=== PATIENT | female | born 1975 | race Caucasian/White ===

== ENCOUNTER 2019-05-15 08:30 | Outpatient (RCR) | payer OTHER, SELFPAY ==
--- NOTE | 2019-05-15 11:04 | HP.PTDCSUM ---
HP - PT D/C Summary It has been my pleasure to treat MAGALIE RIOS under orders from Denzel Gotti MD, for the diagnosis of RIGHT HIP PAIN for a total of 7 visit(s). Discharge Date: Please see the following information for a summary of their discharge status. - Subjective Subjective: PATIENT REPORTS HER MOBILITY HAS IMPROVED AND SHE IS NOT IN MUCH PAIN WALKING NOW. 80% BETTER. DOING HOME EX'S TOO. PATIENT RELATES HER IMPROVEMENTS TO THE POOL EX'S BUT STATES IT IS A HASSLE TO COME AND DO IT. PATIENT WANTS TO TRY JUST CONTINUING HER EX'S AT HOME ON HER OWN AT THIS POINT. PLANNING TO FOLLOW UP WITH DR. GOTTI IN AUG. PATIENT REPORTS SHE IS BETTER ENOUGH NOW THAT SHE KNOWS SHE CAN WALK DOWNTOWN. PATIENT REPORTS NO MORE THAN 3/10 RIGHT HIP PAIN NOW. STILL GETS PAIN TURNING OVER IN BED IN RIGHT GROIN REGION. - Pain R hip Pain Intensity (Out of 10): 1 - Overall Improvement % Improvement: 80 - Objective Objective/Function: PATIENT HAS MADE GREAT PROGRESS WITH PT AND ALTHOUGH SHE MAY BENEFIT FROM FURTHER THERAPY AT THIS TIME SHE WOULD LIKE TO TRY TO JUST CONTINUE ON HER OWN AT THIS TIME. SHE CONTINUES TO. WALK ON A BENT RIGHT KNEE. TRYING TO STAND WITH RIGHT LE STRAIGHT ALSO CONTINUES TO INCREASE RIGHT HIP PAIN. INCREASED RIGHT HIP PAIN WHEN TRYING TO WALK FASTER. Motor deficit: LLE 5/5 WITH MMT'ING. RIGHT LE STRENGTH HAS IMPROVED BUT STILL WITH SIGNIFICANT RIGHT HIP ROTATOR WEAKNESS ER > IR: HIP FLEX 4/5, HIP ABD 4/5, HIP ADD 5/5, HIP, EXT 4/5, IR 4-/5, ER 3+/5. RIGHT KNEE EXT 5/5, KNEE FLEX 5/5, ANKLE 5/5. ROM deficit: PATIENT STILL WITH DECREASED RIGHT HIP ER BY APPROX 50% COMPARED TO THE LEFT AND PAINFUL WITH TESTING. Reflexes: NT. Dural Signs: NEGATIVE MEY LE'S. Lumbar mvmt loss: flex - MIN. ext - BARRY. R SG - MOD. L SG - MOD. LUMBAR EXT TESTING PRODUCES INCREASED RIGHT HIP PAIN. Core strength: POOR. OTHER: ADDED MEY LE DURAL STRETCHING TO HEP TODAY AND ISSUED WRITTEN POOL PROGRAM. RECOMMENDED PHYSICIAN FOLLOW UP. - Goals Goal 1:: DECREASE C/O RIGHT HIP PAIN Goal Progress: Goal Met Goal 2:: IMPROVE STANDING, WALKING, STAIR CLIMBING, ROLLING, SLEEP, RECREATIONAL AND WORK FUNCTION Goal Progress: Goal Met Goal 3:: PATIENT WILL BE INDEP WITH A HEP FOR CONTINUED IMPROVEMENT ONCE FORMAL PHYSICAL THERAPY CONCLUDES. Goal Progress: Goal Met Goal 4:: INCREASE PAINFREE ROM OF RIGHT HIP TO EASE ADL'S Goal Progress: Goal Met Goal 5:: INCREASE PAINFREE FUNCTIONAL STRENGTH OF RIGHT LE TO EASE ADL'S. Goal Progress: Goal Met - Plan Plan: D/C - D/C Information If there are questions or concerns regarding this patient's physical therapy, please feel free to call me at [phone]. Thank you for the referral of this patient. Sincerely, Katelynn Rubio, PT, Cert MDT
== END 2019-05-15 19:00 | disposition home or self-care (01) ==
LOC: PT 08:30
PROVIDERS: Family Provider Family Medicine; PCP Family Medicine; Referring Provider Family Medicine; Visit Provider Family Medicine
DX: M25.551 Pain in right hip (principal)
CPT/HCPCS: 97113; 97162; 97530

== ENCOUNTER 2020-04-21 16:39 | Emergency (ER) | payer OTHER, SELFPAY ==
[2020-04-21 16:40] VITALS: BP 144/89; PULSE 84; RESP 16; TEMP 36.4
[2020-04-21 16:41] VITALS: BP 144/89; PULSE 84; RESP 16; TEMP 36.4; BMI 40.6
--- NOTE | 2020-04-21 18:37 | CT_ITS ---
STUDY: CT ABDOMEN AND PELVIS WITHOUT CONTRAST REASON FOR EXAM: Female, 45 years old. 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 Sagittal and coronal images were reconstructed. Individualized dose optimization techniques were used for this CT. COMPARISON: CT of the chest dated 01/02/2015 FINDINGS: The visualized lung bases are unremarkable. The visualized portions of the heart are within normal limits. The lack of intravenous contrast limits evaluation of solid visceral organs. Normal liver. Normal gallbladder and extrahepatic biliary system. Normal spleen. Normal pancreas. Normal bilateral adrenal glands. Normal right kidney. Normal left kidney. There is a small hiatal hernia. Normal small intestine. Normal colon. The appendix is visualized and appears normal. There are scattered peripheral calcifications of the abdominal aorta consistent with atherosclerosis. Normal inferior vena cava. Normal retroperitoneum. There is a stent within the left common iliac vein. Normal urinary bladder. The adnexa are enlarged measuring up to 3.7 x 5.1 x 4.0 cm on the right and 4.2 x 6.1 x 6.0 cm on the left. There are low-attenuation associated foci within the ovaries. Normal abdominal wall. There are diffuse degenerative changes of the visualized thoracic and lumbar spine. CT/Abdomen/Pel W ORAL Cont Only IMPRESSION: Indeterminate cystic foci within enlarged ovaries, left greater than right, recommend a pelvic ultrasound for further evaluation. Atherosclerosis. Electronically Signed: Sanjuana Gonzales MD at 20:36 EDT Tel , Service support ,
--- NOTE | 2020-04-21 18:37 | ED.DCSUM_ITS ---
History of Present Illness Chief Complaint: Abd Pain Informant: Patient Onset: Days Context: Gradual Onset Current Severity: Moderate Maximum Severity: Moderate Narrative: Patient present secondary lower abdominal pain. Symptoms started 3 days ago. Pain is in the suprapubic region. She denies fever or chills. She is been having regular bowel movements but thought she might be backed up slightly so took a stool softener and some Gas-X. This is not resolved her problems although she is having normal bowel movements. She denies urinary symptoms. Prior surgical history is significant for partial hysterectomy. She states her doctor used lasers. I am unsure if this is a partial hyst or a uterine ablation. - Past Medical History (1) DVT (deep venous thrombosis) Status: Chronic (2) Fe deficiency anemia Status: Chronic Past Medical History - Allergies and Home Meds Allergies/Adverse Reactions: Allergies No Known Allergies Allergy (Verified 08/02/15 08:30) Primary Care Physician: Denzel Haskins MD [Primary Care Provider] - Surgical History: no surgical history Lives: With Family Smoking Status: Light Smoker (<10/day) - Family History Maternal Family History: Reports: No pertinent history Paternal Family History: Reports: No pertinent history Review of Systems General: Denies: Chills, Fever Eyes: Denies: Visual changes - bilaterally ENT: Denies: Bilateral ear pain Cardiovascular: Denies: Chest pain Respiratory: Denies: Dyspnea, Cough Gastrointestinal: Reports: Abdominal pain. Denies: Nausea, Vomiting, Diarrhea Genitourinary: Denies: Dysuria Musculoskeletal: Denies: Extremity Pain Skin: Denies: Rash Neurological: Denies: Headache Hematologic: Denies: Easy bruising, Easy bleeding Allergy: Denies: Uticaria Physical Exam Vital Signs/Narrative: Vital Signs Temp Pulse Resp BP 04/21/20 16:41 97.5 F L 84 16 144/89 H 04/21/20 16:40 97.5 F L 84 16 144/89 H Inital Vital Signs reviewed: Yes General: Well nourished, Well developed Head: Normocephalic ENT: Moist mucous membranes Cardiovascular: Regular rate, Regular rhythm Respiratory: No distress, CTA bilaterally Abdomen: Soft, Tender - Mild suprapubic tenderness. No guarding or rebound., Hypoactive bowel sounds Skin: Normal color Neurological: Alert, Oriented x3 Psychological: Normal affect Diagnostic/Tx/Re-eval Impressions Abdomen CT 04/21/20 18:37 IMPRESSION: Indeterminate cystic foci within enlarged ovaries, left greater than right, recommend a pelvic ultrasound for further evaluation. Atherosclerosis. Electronically Signed: Sanjuana Gonzales MD at 20:36 EDT Tel , Service support , Transvaginal US 04/21/20 20:54 IMPRESSION: Enlarged left ovary with decreased DOPPLER flow may be secondary to intermittent torsion however cannot exclude an underlying mass. Mildly enlarged right ovary secondary to a grossly simple appearing 2.9 x 3.7 x 2.8 cm cyst. N.B. : The above information has been verbally conveyed by Sanjuana Gonzales MD to Rosita Leary MD, on 04/21/2020 22:15:18 (ET). Electronically Signed: Sanjuana Gonzales MD at 22:16 EDT Tel , Service support , ADDENDUM: 04/21/20 2223 IMPRESSION: Enlarged left ovary with decreased DOPPLER flow may be secondary to intermittent torsion however cannot exclude an underlying mass. Mildly enlarged right ovary secondary to a grossly simple appearing 2.9 x 3.7 x 2.8 cm cyst. N.B. : The above information has been verbally conveyed by Sanjuana Gonzales MD to Rosita Leary MD, on 04/21/2020 22:15:18 (ET). Electronically Signed: Sanjuana Gonzales MD at 22:16 EDT Tel , Service support , 04/21/20 18:37 Abdomen/Pel W ORAL Cont Only [CT] Stat 04/21/20 20:54 Transvaginal Non- [US] Stat Laboratory Results 04/21/20 04/21/20 04/21/20 18:58 18:58 18:58 WBC 8.9 RBC 5.08 Hgb 15.5 H Hct 45.6 MCV 89.8 MCH 30.5 MCHC 34.0 RDW Std Deviation 44.5 H RDW Coeff of Waqas 13.6 Plt Count 246 MPV 10.5 Immature Gran % (Auto) 0.400 Neut % (Auto) 77.7 H Lymph % (Auto) 15.6 L [place] % (Auto) 5.5 Eos % (Auto) 0.6 Baso % (Auto) 0.2 Absolute Neuts (auto) 6.9 Absolute Lymphs (auto) 1.39 Nucleated RBC % 0 PT 25.1 H INR 2.3 Sodium 137 Potassium 3.8 Chloride 107 Carbon Dioxide 27.0 Anion Gap 3 L BUN 9 Creatinine 0.89 Estim Creat Clear Calc 72.58 Est GFR (MDRD) Af Amer 89 Est GFR (MDRD) Non-Af 73 BUN/Creatinine Ratio 10.1 Glucose 91 Calcium 9.1 Urine Color Urine Clarity Urine pH Ur Specific [place] Urine Protein Urine Glucose (UA) Urine Ketones Urine Occult Blood Urine Nitrite Urine Bilirubin Urine Urobilinogen Ur Leukocyte Esterase Urine RBC Urine WBC Ur Squamous Epith Cells Urine Bacteria Urine Mucus 04/21/20 19:32 WBC RBC Hgb Hct MCV MCH MCHC RDW Std Deviation RDW Coeff of Waqas Plt Count MPV Immature Gran % (Auto) Neut % (Auto) Lymph % (Auto) [place] % (Auto) Eos % (Auto) Baso % (Auto) Absolute Neuts (auto) Absolute Lymphs (auto) Nucleated RBC % PT INR Sodium Potassium Chloride Carbon Dioxide Anion Gap BUN Creatinine Estim Creat Clear Calc Est GFR (MDRD) Af Amer Est GFR (MDRD) Non-Af BUN/Creatinine Ratio Glucose Calcium Urine Color Yellow Urine Clarity Clear Urine pH 6.0 Ur Specific [place] 1.015 Urine Protein Negative Urine Glucose (UA) Normal Urine Ketones Negative Urine Occult Blood 50 H Urine Nitrite Negative Urine Bilirubin Negative Urine Urobilinogen Normal Ur Leukocyte Esterase Negative Urine RBC 0 SEEN Urine WBC 0 SEEN Ur Squamous Epith Cells 0-5 SEEN Urine Bacteria RARE Urine Mucus 0 SEEN - Medical Decision Making Patient declined anything here for pain. Test results are discussed with patient and at bedside. I spoke with Dr. Christian Rico, on-call for the patient's MOTOR VEHICLES INSPECTOR, Dr. Li. She presented to the emergency room to see the patient. She offered hospital admission and surgery tomorrow. Patient is adamantly refusing this. She will write the patient for Lovenox to transition from Coumadin in light of expected surgery within the next week. Patient is to call the office tomorrow morning. ED Disposition - Plan for ED Patient: Disposition: Home or Assisted Living Instructions: ED Cyst Ovarian Prescriptions: Enoxaparin [Lovenox] 40 mg SC BID #60 syringe Oxycodone [Oxyir] 5 mg PO Q6H PRN PRN 5 Days #10 tablet PRN Reason: severe pain Referrals: Layne Wakefield MD [STAFF PHYSICIAN] - As soon as possible
[2020-04-21] MEDS: 0.9% Normal Saline 1,000 ML 150 ML IV (18:55)
[2020-04-21 19:07] LABS: Absolute Lymphocyte Count 1.39 X10^3/uL (0.83-4.51); Absolute Neutrophil Count 6.9 X10^3/uL (2.0-7.7); Basophil# 0.02 X10^3/uL; Basophil% 0.2 % (0-1); Eosinophil# 0.05 X10^3/uL; Eosinophils% 0.6 % (0-5); Hematocrit 45.6 % (37-47); Hemoglobin 15.5 g/dL (12.0-15.0); Lymphocyte # 1.39 X10^3/ul (4.0); Lymphocyte % 15.6 % (19-41); Mean Corpuscular Hgb 30.5 pg (27.0-32.0); Mean Corpuscular Volume 89.8 fL (81-99); Mean Platelet Vol. 10.5 fl (6.2-12.0); Monocyte# 0.49 X10^3/uL; Monocyte% 5.5 % (0-10); NRBC Flagged by Analyzer 0 % (0-5); Neutrophil # 6.94 X10^3/uL (2.7-7.7); Neutrophil % 77.7 % (47-70); Platelet Count 246 K/mm3 (150-450); RBC Distribution Width CV 13.6 % (11.6-14.6); RBC Distribution Width SD 44.5 fl (35.1-43.9); Red Blood Count 5.08 M/mm3 (4.2-5.4); White Blood Count 8.9 K/mm3 (4.4-11.0)
[2020-04-21 19:20] LABS: Anion Gap 3 (5-15); BUN 9 mg/dL (7-18); BUN/Creat Ratio 10.1 RATIO (10-20); Calcium,Total 9.1 mg/dL (8.5-10.1); Chloride 107 mmol/L (98-107); Creatinine, Serum 0.89 mg/dL (0.55-1.02); EST Glomerular Filtration Rate 73 mL/min (>60); Est Glom Filt Rate - Afr Amer 89 mL/min (>60); Estimated Creatinine Clearance 72.58 ml/min; Glucose 91 mg/dL (74-106); Potassium 3.8 mmol/L (3.5-5.1); Sodium Level 137 mmol/L (136-145)
[2020-04-21 19:22] LABS: International Normalized Ratio 2.3; Prothrombin Time (Protime)PT. 25.1 SECONDS (11.7-14.9)
[2020-04-21 19:35] LABS: Mucous, Urine 0 SEEN /hpf (<or=2+); Red Blood Cells-Urine 0 SEEN /hpf (0-5); White Blood Cells 0 SEEN /hpf (0-5)
[2020-04-21 19:54] LABS: Color, Urine Yellow (Yellow); Glucose, Dipstick Normal (Normal); Ketone-Dipstick Negative (Negative); Leukocyte Esterase-Dipstick Negative /ul (Negative); Nitrite-Dipstick Negative (Negative); Occult Blood-Urine 50 /ul (Negative); Protein-Dipstick Negative (Negative); Specific Gravity, Urine 1.015 (1.002-1.030); Urine Bilirubin Dipstick Negative (Negative); Urine Clarity Clear (Clear); Urine Urobilinogen Normal (Normal)
[2020-04-21 20:00] LABS: Bacteria RARE /hpf (None Seen); Squamous Epithelial Cells - UA 0-5 SEEN /hpf (5-10)
--- NOTE | 2020-04-21 20:54 | US_ITS ---
STUDY: ULTRASOUND OF THE FEMALE PELVIS - COMPLETE REASON FOR EXAM: Female, 45 years old. OV CYST SEEN ON CT PELVIC PAIN S/P HYSTERECTOMY TECHNIQUE: Transabdominal and Transvaginal TECHNICAL QUALITY: Adequate. COMPARISON: None. FINDINGS: The patient status post hysterectomy. The right ovary is visualized. The right ovary measures 5.1 x 3.8 x 3.7 cm. There is a 2.9 x 3.7 x 3.8 cm grossly simple appearing right ovarian cyst. There is normal arterial and normal venous vascularity. The left ovary is visualized. The left ovary measures 6.5 x 4.1 x 3.8 cm. There is decreased DOPPLER flow to the left ovary. There is fluid in the cul-de-sac. US/Transvaginal Non- IMPRESSION: Enlarged left ovary with decreased DOPPLER flow may be secondary to intermittent torsion however cannot exclude an underlying mass. Mildly enlarged right ovary secondary to a grossly simple appearing 2.9 x 3.7 x 2.8 cm cyst. N.B. : The above information has been verbally conveyed by Sanjuana Gonzales MD to Rosita Leary MD, on 04/21/2020 22:15:18 (ET). Electronically Signed: Sanjuana Gonzales MD at 22:16 EDT Tel , Service support ,
[2020-04-21] MEDS: Acetaminophen 500 MG Tablet 1000 MG PO (23:07)
--- NOTE | 2020-04-21 23:53 | CON.PCM_ITS ---
Problem List (1) Ovarian torsion Status: Acute Reason for Consult Date of Consultation: 04/21/20 Reason for Consultation: Lower abdominal pain, bilateral ovarian cysts History of Present Illness: The patient is a 45 year old F para 2 presenting with 4 days of worsening lower abdominal pain. Left > right. She denies nausea, vomiting, fever, chills. She relates pain was mild on Sunday and started suddenly and was intermittent, but on Sunday became persistent with severe pain occurring earlier today. She thought she was constipated and took stool softener and Magnesium without any relief. Patient with hx DVT, on Coumadin. She reports having failed multiple oral anticoagulants due to persistent clotting. She is followed by PCP Dr. Auguste. 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 Denies: Diarrhea, Nausea, Vomiting Psychiatric: Reports: Anxiety Patient Problems: Active and Suspected Problems Ovarian torsion (Acute) Subjective: See HPI - Physical Exam Vitals/I&O's: Vital Signs Temp Pulse Resp BP 97.5 F L 84 16 144/89 H 04/21/20 16:41 04/21/20 16:41 04/21/20 16:41 04/21/20 16:41 Weight: 110.9 kg Body Mass Index (BMI) 40.6 Intake and Output for Last 24 Hours 04/19/20 04/20/20 04/21/20 23:59 23:59 23:59 Intake Total 1000 / 999 Balance 999 / 999 General: Alert, Oriented x3, Cooperative, No apparent distress HEENT: Atraumatic, Normocephalic Lungs: Normal air movement Cardiovascular: Regular rate, Regular Rhythm, Normal S1, Normal S2 Abdomen: Soft, Non-Distended, - - bilateral lower abdominal tenderness without rebound or guarding Extremities: No Calf Tenderness, - - LE varicosities present Neurological: Neuro grossly intact Psych/Mental Status: Normal Affect, Appropriate, Alert and oriented to time, place, person, mood and affect Laboratory Results 04/21/20 18:58: WBC 8.9, RBC 5.08, Hgb 15.5 H, Hct 45.6, MCV 89.8, MCH 30.5, MCHC 34.0, RDW Std Deviation 44.5 H, RDW Coeff of Waqas 13.6, Plt Count 246, MPV 10.5, Immature Gran % (Auto) 0.400, Neut % (Auto) 77.7 H, Lymph % (Auto) 15.6 L, [place] % (Auto) 5.5, Eos % (Auto) 0.6, Baso % (Auto) 0.2, Absolute Neuts (auto) 6.9, Absolute Lymphs (auto) 1.39, Nucleated RBC % 0 04/21/20 18:58: Sodium 137, Potassium 3.8, Chloride 107, Carbon Dioxide 27.0, Anion Gap 3 L, BUN 9, Creatinine 0.89, Estim Creat Clear Calc 72.58, Est GFR (MDRD) Af Amer 89, Est GFR (MDRD) Non-Af 73, BUN/Creatinine Ratio 10.1, Glucose 91, Calcium 9.1 04/21/20 18:58: PT 25.1 H, INR 2.3 04/21/20 19:32: Urine Color Yellow, Urine Clarity Clear, Urine pH 6.0, Ur Specific [place] 1.015, Urine Protein Negative, Urine Glucose (UA) Normal, Urine Ketones Negative, Urine Occult Blood 50 H, Urine Nitrite Negative, Urine Bilirubin Negative, Urine Urobilinogen Normal, Ur Leukocyte Esterase Negative, Urine RBC 0 SEEN, Urine WBC 0 SEEN, Ur Squamous Epith Cells 0-5 SEEN, Urine Bacteria RARE, Urine Mucus 0 SEEN Diagnostic Data Abdomen CT 04/21/20 18:37 IMPRESSION: Indeterminate cystic foci within enlarged ovaries, left greater than right, recommend a pelvic ultrasound for further evaluation. Atherosclerosis. Electronically Signed: Sanjuana Gonzales MD at 20:36 EDT Tel , Service support , Transvaginal US 04/21/20 20:54 IMPRESSION: Enlarged left ovary with decreased DOPPLER flow may be secondary to intermittent torsion however cannot exclude an underlying mass. Mildly enlarged right ovary secondary to a grossly simple appearing 2.9 x 3.7 x 2.8 cm cyst. N.B. : The above information has been verbally conveyed by Sanjuana Goznales MD to Rosita Leary MD, on 04/21/2020 22:15:18 (ET). Electronically Signed: Sanjuana Gonzales MD at 22:16 EDT Tel , Service support , ADDENDUM: 04/21/20 2223 IMPRESSION: Enlarged left ovary with decreased DOPPLER flow may be secondary to intermittent torsion however cannot exclude an underlying mass. Mildly enlarged right ovary secondary to a grossly simple appearing 2.9 x 3.7 x 2.8 cm cyst. N.B. : The above information has been verbally conveyed by Sanjuana Gonzales MD to Rosita Leary MD, on 04/21/2020 22:15:18 (ET). Electronically Signed: Sanjuana Gonzales MD at 22:16 EDT Tel , Service support , Current Medications Sodium Chloride () 1,000 mls @ 150 mls/hr IV .Q6H40M SAIRA Last Infusion: 04/21/20 21:44 Dose: Infused Documented by: Assessment/Plan All Active Problems Ovarian torsion (Acute) 45yo with bilateral ovarian cysts and evidence of left ovarian torsion. Likely detorsed at time of my evaluation. -Reviewed with patient imaging findings. No ascites, LAD and no concerning ovarian morphology. Findings suspicious for ovarian torsion. Advised laparoscopic ovarian detorsion with cystectomy as indicated, possible u/l or b/l oophorectomy. Reviewed associated surgical risks including pain, scarring, injury to surrounding organs including bowel, bladder or vessels , bleeding, infection, VTE, surgical menopause. Discussed anticipated hospital course and recovery course. My main concern however is her risk for bleeding related to Coumadin with elevated INR. I advised admission for Vitamin K reversal with Lovenox anticoagulation and plan for surgery late tomorrow afternoon. Patient indicated this was unacceptable due to workplace requirements and felt her pain was adequate controlled, desiring discharge. I discussed withholding Coumadin, start Lovenox therapy and plan for outpatient surgery as an alternative, however, pt understands that in absence of Vitamin K will take longer for INR to normalize thus will delay surgery. Additionally reviewed if torsion recurs and persists risk for ovarian necrosis and infection requiring oophorectomy exists. Patient and given opportunity to ask questions and questions answered to their satisfaction. Patient reports understanding of risks, benefits of expectant management at this time and declines admission. Pt amenable to starting Lovenox in preparation for surgery. Initial dose given in ER and rx sent to pharmacy for bid dosing. Will d/c Coumadin. Patient advised to call office first thing in am with update and office will schedule surgery in the coming days. Office Visits / Consults: [id number] OV L3 New
[2020-04-22] MEDS: Enoxaparin 40 MG/0.4 ML Syringe SC (00:21)
[2020-04-22 00:25] VITALS: BP 133/77; PULSE 68; RESP 18; O2SAT 99
== END 2020-04-22 00:26 | disposition home or self-care (01) ==
PROVIDERS: Emergency Provider Emergency Medicine; PCP Family Medicine
DX: N83.512 Torsion of left ovary and ovarian pedicle (principal); N83.201 Unspecified ovarian cyst, right side; N83.202 Unspecified ovarian cyst, left side; F17.210 Nicotine dependence, cigarettes, uncomplicated; E66.9 Obesity, unspecified; Z68.41 Body mass index [BMI] 40.0-44.9, adult; Z90.710 Acquired absence of both cervix and uterus; Z86.718 Personal history of other venous thrombosis and embolism; Z79.01 Long term (current) use of anticoagulants
CPT/HCPCS: 74176; 76830; 80048; 81001; 85025; 85610; 93976; 96360; 96361; 96372; 99284; J7030; A4216

== ENCOUNTER → 2020-04-23 08:00 | Outpatient (CLI) | payer OTHER, SELFPAY ==
[2020-04-21 16:41] VITALS: BMI 40.6
--- NOTE | 2020-04-23 09:15 | EKG12_ITS ---
Test Reason : PREOP Blood Pressure : / mmHG Vent. Rate : 081 BPM Atrial Rate : 081 BPM P-R Int : 136 ms QRS Dur : 092 ms QT Int : 350 ms P-R-T Axes : -03 039 042 degrees QTc Int : 406 ms Normal sinus rhythm Normal ECG Confirmed by ALTAGRACIA SAUCEDO, SUZIE ([id number]), loan expeditor JAME SWAIN ([id number]) on 04/26/2020 9:05:25 AM Referred By: Renato Li Confirmed By:SUZIE FRIAS MD
--- NOTE | 2020-04-25 21:47 | HP.PCM_ITS ---
History and Physical Date of Admission: 04/26/20 Surgical History and Physical--CANCELLED SURGERY FOR TODAY Shelbi العراقي, a 45 year old female 2 0 0 0 2, presents for Laparoscopy possible oophorectomy. -- Pelvic Pain and Possible Ovarian Torsion -- Has had two recent L leg surgeries for numerous DVTs. Prior RAVH/BS for heavy bleeding and submucous fibroids. Presented to the ER with severe pain and u/s suggested ovarian torsion. Now today reports pain has resolved. MEDICATIONS HISTORY: Current medications prescribed by our practice are: 1. Diflucan 150 mg tablet, 1 pill by mouth every 4 days Patient is also takin. Coumadin 7.5 mg tablet, As Directed Sat thru , 5mg on Sunday ALLERGIES: NKDA, Fentanyl and Generalized rash Infections - Chicken pox Illnesses - DVTs Accidents - no injuries of consequence Hospitalizations - Childbirth and see surgery hemorrhoids; Review of Systems: GENERAL - Denies fever, or chills SKIN - Denies skin changes EYES - Denies visual changes EARS - Denies difficulty hearing NOSE - Denies nasal congestion or bleeding MOUTH - Denies sore throat or difficulty swallowing NECK - Denies pain or swelling RESPIRATORY - Denies shortness of breath or wheezing CARDIOVASCULAR - Denies palpitations or chest pain GASTROINTESTINAL - Denies nausea, vomiting, diarrhea, constipation GENITOURINARY - Denies dysuria, frequency of urination, incontinence of urine MUSCULOSKELETAL - Denies joint or muscle pain NEUROLOGICAL - Denies localized numbness or weakness PSYCHIATRIC - Denies depression or anxiety ENDOCRINE - Denies heat or cold intolerance, weight loss or gain HEMATO-IMMUNOLOGIC - Denies excesive bleeding with cuts SOCIAL HISTORY: Alcohol Use - denies drinking Smoking - 7-10 cigs/week Diet - balanced Diet Lifestyle - , unplanned Exercise - walking Seat Belt Use - always 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 Maternal Grandmother: Heart problems. Paternal Grandmother: Cancer-unknown. MENSTRUAL HISTORY: LMP Known?- prior hyst/bsoAmount/Duration - 7 days, Regularity - heavy, Frequency - variable days, LMP - 07/06/15, Age Onset Menarche - 13 PAST PREGNANCIES: Total Pregnancies - 2; Full Term Pregnancies - 2; Premature - 0; Abortions, Induced - 0; Abortions, Spontaneous - 0; Ectopics - 0; Multiple Births - 0; Living Children - 2 SURGICAL HISTORY: 1. Hemorrhoidectomy 05/2007 ; Dr. Erickson 2. 01/11/2015 L leg clot removal 3. 02/10/2015 L leg clot removal, stent removal 4. [place] Teeth Extraction 5. 08/02/2015 RAVH/Ishmael salpingectomy ; Renato Li M.D. PHYSICAL EXAM BP- 130/80 Sitting, Right arm, regular cuff Weight- 262.76880 lbs Height- 69 inch BMI:38.77 CONSTITUTIONAL - NAD, well nourished, and well developed SKIN - No rash, lesions, or ulcers HEENT - Normocephalic, PERRLA, EOMI NECK - No nodes, no nuchal rigidity and thyroid normal size and texture LYMPH NODES - Palpation of lymph nodes in neck and groins within normal limits LUNGS - CTA x2 without wheezes, crackles or rales CARDIAC - Regular rate and rhythm without rubs, murmurs, or gallops BREAST - No dominant masses, no tenderness, no axillary adenopathy, no nipple discharge, no skin changes ABDOMEN - Without hepatosplenomegaly, distention, masses, rebound, or guarding; normal bowel sounds; no hernias EXTREMITIES - No edema or calf tenderness NEUROLOGICAL - Cranial nerves II-XII grossly intact PSYCHIATRIC - A and O to time, place, person, mood and affect External Genitial Vagina - non-tender without lesions Urethra/Urethral Meatus - non-tender Bladder - non-tender Vagina - vaginal regan are pink and moist without loss of rugae and no evidence of atropy Cervix - Prior hysterectomy-well healed vaginal cuff Uterus - prior hysterectomy-absent Adnexa - tender per ER notes ASSESSMENT/PLAN: Ovarian Torsion. No pain today and has resolved slowly since in ER last week. Discussed options and will cancel surgery for today and repeat u/s in 3-4 weeks. To continue Lovenox for 1 week in case torsion sxs return and she needs surgery. Then will resume Coumadin.
[2020-04-26 13:56] LABS: Prothrombin Time Fingerstick 13.3 SEC (11.9-14.4)
== END ==
PROVIDERS: PCP Family Medicine; Referring Provider Obstetrics & Gynecology; Visit Provider Obstetrics & Gynecology
DX: Z01.818 Encounter for other preprocedural examination (principal); Z53.8 Procedure and treatment not carried out for other reasons
CPT/HCPCS: 36416; 85610; 86850; 86900; 86901; 87635; 93005; 94799; J7120; U0003

== ENCOUNTER 2021-11-23 06:31 | Outpatient (CLI) | payer OTHER, SELFPAY ==
--- NOTE | 2021-11-23 07:39 | RAD_ITS ---
STUDY: BONE LENGTH SCANOGRAM REASON FOR EXAM: Female, 46 years old. Bilateral hip pain. TECHNIQUE: Frontal views of the lower pelvis and both lower extremities were obtained on 4 images. COMPARISON: None. FINDINGS: Mild arthrosis of both hips, both knees and both tibiotalar joints. The distance from the right acetabular rim to the medial femorotibial compartment of the knee is 54 cm. The distance from the medial femorotibial compartment to the tibiotalar joint is is 42 cm. Distance from the right acetabular rim. The tibiotalar joint is 96 cm. Distance from the left acetabular rim to the left medial femorotibial compartment in 53.5 cm. The distance from the medial femorotibial compartment to the tibiotalar joint is 42.5 cm. Total distance from the left acetabular rim to the tibiotalar joint is 96 cm. RAD/Bone Length IMPRESSION: Leg length measurements as described. Electronically Signed: Josh Kelly MD at 10:06 EST ,
== END 2021-11-23 23:59 | disposition home or self-care (01) ==
PROVIDERS: PCP Family Medicine; Referring Provider Physician Assistant Surgical; Visit Provider Physician Assistant Surgical
DX: M25.552 Pain in left hip (principal); M25.551 Pain in right hip
CPT/HCPCS: 77073